=== PATIENT | male | born 1980 | race American Indian/Alaskan Native ===

== ENCOUNTER 2017-05-30 12:39 | Emergency (ER) | payer SELFPAY ==
[2017-05-30] MEDS ORDERED: ASPIRIN PO ONE (12:49)
[2017-05-30 14:05] LABS: Basophils % (Auto) 0.8 % (0.0-1.8); Eosinophils # (Auto) 0.4 K/mm3 (0.0-0.4); Eosinophils % (Auto) 8.6 % (0.0-4.3); Hematocrit 49.7 % (35.5-45.6); Hemoglobin 16.7 gm/dl (11.8-15.2); Lymphocytes # (Auto) 0.7 K/mm3 (1.2-5.4); Lymphocytes % (Auto) 15.8 % (13.4-35.0); Mean Corpuscular HGB Conc 34 % (32-34); Mean Corpuscular Hemoglobin 30 pg (28-32); Mean Corpuscular Volume 88 fl (84-94); Monocytes # (Auto) 0.7 K/mm3 (0.0-0.8); Monocytes % (Auto) 14.7 % (0.0-7.3); Platelet Count 251 K/mm3 (140-440); Red Blood Count 5.65 M/mm3 (3.65-5.03); Red Cell Distribution Width 12.6 % (13.2-15.2)
[2017-05-30 14:24] LABS: BUN/Creatinine Ratio 12; Blood Urea Nitrogen 11 mg/dL (9-20); Calcium 9.2 mg/dL (8.4-10.2); Hemolysis Index 16
[2017-05-31] MEDS ORDERED: NORCO 5/325 PO ONE (04:34)
--- NOTE | 2017-05-31 04:38 | Emergency Department Report ---
ED Chest Pain HPI - General Chief Complaint: Chest Pain Stated Complaint: CP Time Seen by Provider: 05/31/17 04:20 Source: patient Mode of arrival: Ambulatory Limitations: No Limitations - History of Present Illness Initial Comments: This is a 37 year-old male presents to the emergency department with a complaint of some left-sided chest pain that has been going on over the past few weeks. It is intermittent but is present more than it is not. There is some intermittent shortness of breath but he denies any fever, back pain, nausea, vomiting or diaphoresis. He denies any tobacco or illicit drug use or abuse. No recent travel or sick contacts at home. He has not taken anything for her symptoms prior to presentation. The only past medical history he has is some type of "lung issue" that he cannot quite explain but says that it required him to have a biopsy of something in his left upper lung that did not hospitalist nocturnist physician to be anything malignant. He does not have a primary care physician. Severity scale (0 -10): 8 - Related Data Previous Rx's Medication Instructions Recorded Last Taken Type Ibuprofen [Motrin] 800 mg PO TID #30 tablet 11/19/13 Unknown Rx Sulfamethoxazole/Trimethoprim 1 each PO BID #14 tablet 11/19/13 Unknown Rx [Bactrim Ds] traMADol [Ultram 50 MG tab] 50 mg PO Q6HR PRN #20 tablet 11/19/13 Unknown Rx Cephalexin [Keflex] 500 mg PO Q6H #40 capsule 03/25/14 Unknown Rx ALBUTEROL Inhaler [ProAir HFA 2 puff IH QID PRN #1 inhalation 11/19/14 Unknown Rx Inhaler] Acetamin/Codeine 120-12Mg/5 ml 5 ml PO TID PRN #30 ml 11/19/14 Unknown Rx [Tylenol/Codeine] Azithromycin [Zithromax Z-NIKOLAI] 250 mg PO DAILY 5 Days tab 11/19/14 Unknown Rx Cetirizine HCl [Allergy Relief] 10 mg PO DAILY #10 tablet 11/19/14 Unknown Rx Azithromycin [Zithromax Z-NIKOLAI] 250 mg PO DAILY #6 tab 05/31/17 Unknown Rx Allergies Allergy/AdvReac Type Severity Reaction Status Date / Time shellfish derived Allergy Anaphylaxis Verified 11/19/13 09:54 Heart Score - HEART Score History: Slightly suspicious EKG: Non-specific Age: < 45 Risk factors: No known risk factors Troponin: < normal limit HEART Score: 1 - Critical Actions Critical Actions: 0-3 pts:0.9-1.7%risk of adverse cardiac event.Candidate for discharge ED Review of Systems ROS: Stated complaint: CP Other details as noted in HPI Comment: All other systems reviewed and negative Constitutional: denies: chills, fever Eyes: denies: eye pain, eye discharge, vision change ENT: denies: ear pain, throat pain Respiratory: shortness of breath (intermittent). denies: cough Cardiovascular: chest pain. denies: edema Gastrointestinal: denies: abdominal pain, nausea, diarrhea Genitourinary: denies: urgency, dysuria Musculoskeletal: denies: back pain, joint swelling, arthralgia Skin: denies: rash, lesions Neurological: denies: headache, weakness, paresthesias ED Past Medical Hx - Past Medical History Previous Medical History?: No - Surgical History Past Surgical History?: No - Social History Smoking Status: Former Smoker Substance Use Type: Alcohol - Medications Home Medications: Home Medications Medication Instructions Recorded Confirmed Last Taken Type Ibuprofen [Motrin] 800 mg PO TID #30 tablet 11/19/13 Unknown Rx Sulfamethoxazole/Trimethoprim 1 each PO BID #14 tablet 11/19/13 Unknown Rx [Bactrim Ds] traMADol [Ultram 50 MG tab] 50 mg PO Q6HR PRN #20 tablet 11/19/13 Unknown Rx Cephalexin [Keflex] 500 mg PO Q6H #40 capsule 03/25/14 Unknown Rx ALBUTEROL Inhaler [ProAir HFA 2 puff IH QID PRN #1 inhalation 11/19/14 Unknown Rx Inhaler] Acetamin/Codeine 120-12Mg/5 ml 5 ml PO TID PRN #30 ml 11/19/14 Unknown Rx [Tylenol/Codeine] Azithromycin [Zithromax Z-NIKOLAI] 250 mg PO DAILY 5 Days tab 11/19/14 Unknown Rx Cetirizine HCl [Allergy Relief] 10 mg PO DAILY #10 tablet 11/19/14 Unknown Rx Azithromycin [Zithromax Z-NIKOLAI] 250 mg PO DAILY #6 tab 05/31/17 Unknown Rx ED Physical Exam - General Limitations: No Limitations - Other Other exam information: GENERAL: The patient is well-developed well-nourished. HENT: Normocephalic. Atraumatic. Patient has moist mucous membranes. EYES: Extraocular motions are intact. Pupils equal reactive to light bilaterally. NECK: Supple. Trachea is midline. CHEST/LUNGS: Clear to auscultation. There is no respiratory distress noted. HEART/CARDIOVASCULAR: Regular. There is no tachycardia. There is no murmur. ABDOMEN: Abdomen is soft, nontender. Patient has normal bowel sounds. There is no abdominal distention. SKIN: Skin is warm and dry. NEURO: The patient is awake, alert, and oriented. The patient is cooperative. The patient has no focal neurologic deficits. The patient has normal speech. MUSCULOSKELETAL: There is no tenderness or deformity. There is no limitation range of motion. There is no evidence of acute injury. ED Course Vital Signs 05/30/17 05/31/17 05/31/17 12:46 03:43 04:28 Temperature 98.5 F 98.1 F Pulse Rate 112 H 71 73 Respiratory 16 18 Rate Blood Pressure 125/79 121/83 O2 Sat by Pulse 98 98 99 Oximetry 05/31/17 05/31/17 05/31/17 04:31 04:39 04:45 Temperature Pulse Rate 68 Respiratory 21 18 18 Rate Blood Pressure 116/64 O2 Sat by Pulse 99 Oximetry 05/31/17 05:00 Temperature Pulse Rate 71 Respiratory 13 Rate Blood Pressure 116/64 O2 Sat by Pulse 97 Oximetry SPENCER score - Spencer Score Age > 65: (0) No Aspirin use within the Past 7 Days: (0) No 3 or more CAD Risk Factors: (0) No 2 or more Angina events in past 24 hrs: (1) Yes Known CAD with more than 50% Stenosis: (0) No Elevated Cardiac Markers: (0) No ST Deviation Greater than 0.5mm: (0) No SPENCER Score: 1 ED Medical Decision Making - Lab Data Result diagrams: 05/30/17 13:17 05/30/17 13:17 - EKG Data -: EKG Interpreted by [facility] EKG shows normal: sinus rhythm, axis, intervals, QRS complexes (Q waves to the septal leads), ST-T waves Rate: normal - EKG Data When compared to previous EKG there are: previous EKG unavailable Interpretation: other (sinus rhythm, normal axis, normal intervals, Q waves to the septal leads) - Radiology Data Radiology results: report reviewed PROCEDURE: XR CHEST ROUTINE 2V TECHNIQUE: PA and lateral chest radiographs were obtained. CPT 98127 HISTORY: chest pain COMPARISON: No prior studies are available for comparison. FINDINGS: Heart: Normal. Mediastinum/Vessels: Normal. Lungs/Pleural space: Mild scattered infiltrates in the right hilar region. No effusion or pneumothorax. Bony thorax: No acute osseous abnormality. Other: IMPRESSION: Scattered infiltrates in the right hilar region.. Transcribed By: [facility] Dictated By: CRAIG ARGUETA MD Electronically Authenticated By: CRAIG ARGUETA MD Signed Date/Time: 05/31/17 0107 - Medical Decision Making Patient presents with some intermittent left-sided chest pains and intermittent shortness of breath that has been going on for weeks. EKG does not show any signs of ST elevation UT or dysrhythmia. Labs are mostly unremarkable including negative troponins 3 and a negative d-dimer. Chest x-ray was read by radiology as concern for scattered infiltrates in the right hilar region. This reason the patient will go on azithromycin. He is low on the Heart score criteria. He has a SPENCER score of one of his pain is considered angina and 0 if not. Vital signs stable throughout his ED course including being afebrile. The patient appears safe for discharge home at this time. He'll go home on azithromycin and was given a referral for cardiology in case he would like to pursue an outpatient stress test or further evaluation of his chest discomfort. He will return to the ER with any worsening of symptoms or any acute distress. - Differential Diagnosis UT, PE, pneumonia, costochondritis, GERD Critical Care Time: No Critical care attestation.: If time is entered above; I have spent that time in minutes in the direct care of this critically ill patient, excluding procedure time. ED Disposition Clinical Impression: Chest pain Qualifiers: Chest pain type: unspecified Qualified Code(s): R07.9 - Chest pain, unspecified Pneumonia Qualifiers: Pneumonia type: due to unspecified organism Laterality: right Lung location: unspecified part of lung Qualified Code(s): J18.9 - Pneumonia, unspecified organism Disposition: DC-01 TO HOME OR SELFCARE Is pt being admited?: No Condition: Stable Instructions: Chest Pain (ED), Bacterial Pneumonia (ED) Additional Instructions: Please follow-up with a primary care physician the next few days. I have given you a referral for a local advertisement distributor, Dr. Rojas, and follow-up regarding your chest pains. Return to the emergency Department with any worsening of your symptoms or any acute distress. Prescriptions: Azithromycin [Zithromax Z-NIKOLAI] 250 mg PO DAILY #6 tab Referrals: KRYSTIAN CALVILLO MD [Primary Care Provider] - 3-5 Days MEGHANN ROJAS MD [Staff Physician] - 3-5 Days Forms: Work/School Release Form(ED) Time of Disposition: 05:34
--- NOTE | 2017-05-31 05:10 | XRay Report ---
FINAL REPORT PROCEDURE: XR CHEST ROUTINE 2V TECHNIQUE: PA and lateral chest radiographs were obtained. CPT 98244 HISTORY: chest pain COMPARISON: No prior studies are available for comparison. FINDINGS: Heart: Normal. Mediastinum/Vessels: Normal. Lungs/Pleural space: Mild scattered infiltrates in the right hilar region. No effusion or pneumothorax. Bony thorax: No acute osseous abnormality. Other: IMPRESSION: Scattered infiltrates in the right hilar region..
[2017-05-31 06:51] VITALS: BP 98/66
== END 2017-05-31 07:03 | disposition home or self-care (01) ==
LOC: ED 12:39
DX: J18.9 Pneumonia, unspecified organism (principal); Z91.013 Allergy to seafood
CPT/HCPCS: 36415; 71046; 80048; 84484; 85025; 85379; 93005; 93010